=== PATIENT | male | born 1970 | race Caucasian/White ===

== ENCOUNTER 2019-01-14 09:43 | Emergency (ER) | payer OTHER ==
[~2019-01-14] VITALS: Ht 172.7 cm; Wt 75.3 kg
[~2019-01-14 09:43] MED LIST: KETO10TA2 PO
[2019-01-14] MEDS ORDERED: COZAAR25 MG (09:49)
== END 2019-01-14 13:13 | disposition home or self-care (01) ==
LOC: ER 09:43
DX: N20.0 Calculus of kidney (principal); R10.32 Left lower quadrant pain